=== PATIENT | female | born 1990 ===

== ENCOUNTER → 2020-04-27 | Outpatient (CLI) | payer OTHER ==
[2020-05-08 12:10] LABS: CHLAMYDIA TRACHOMATIS, NAA Negative (Negative); NEISSERIA GONORRHOEAE, NAA Negative (Negative)
== END | disposition home or self-care (01) ==
LOC: LAB SHORT 15:30 → LAB 15:30
PROVIDERS: Advanced Practice Midwife
DX: Z01.419 Encounter for gynecological examination (general) (routine) without abnormal findings (principal); Z11.3 Encounter for screening for infections with a predominantly sexual mode of transmission
CPT/HCPCS: 87491; 87591; 87625; G0123

== ENCOUNTER → 2020-06-05 | Outpatient (CLI) | payer OTHER | END | disposition home or self-care (01) | LOC: PLD 14:26 → LAB SHORT 14:26 | DX: R87.612 Low grade squamous intraepithelial lesion on cytologic smear of cervix (LGSIL) (principal); D06.0 Carcinoma in situ of endocervix; D06.1 Carcinoma in situ of exocervix | CPT/HCPCS: 88305 ==

== ENCOUNTER 2021-01-08 20:29 | Emergency (ER) | payer OTHER ==
[~2021-01-08] VITALS: Ht 160 cm; Wt 68.0 kg
[2021-01-08] MEDS ORDERED: PRENATAL DHA200 MG PO (21:09)
[2021-01-08] MEDS ORDERED: Permethrin60 GM TOP (21:13)
== END 2021-01-08 21:20 | disposition home or self-care (01) ==
LOC: ER 20:29
DX: O98.813 Other maternal infectious and parasitic diseases complicating pregnancy, third trimester (principal); B86 Scabies; Z88.1 Allergy status to other antibiotic agents; Z3A.31 31 weeks gestation of pregnancy
CPT/HCPCS: 99282

== ENCOUNTER 2021-02-23 09:19 | Inpatient (IN) | payer OTHER ==
[~2021-02-23] VITALS: Ht 160 cm; Wt 70.7 kg
[~2021-02-23 09:19] MED LIST: PRENATAL DHA200 MG PO; Permethrin60 GM TOP
[2021-02-23] MEDS ORDERED: PRENATAL TABLE1 EAC2 PO (09:53)
[2021-02-23 09:56] LABS: BASOPHILS ABSOLUTE AUTO 0.02 K/mm3 (0.00-0.23); BASOPHILS PERCENT AUTO 0 % (0-2); EOSINOPHILS ABSOLUTE AUTO 0.09 K/mm3 (0.00-0.68); EOSINOPHILS PERCENT AUTO 1 % (0-6); Hematocrit 38.2 % (33.0-51.0); Hemoglobin 13.6 g/dL (11.5-16.0); IMMATURE GRAN ABSOLUTE AUTO 0.06 K/mm3 (0.00-0.10); IMMATURE GRAN PERCENT AUTO 1 % (0-1); LYMPHOCYTES ABSOLUTE AUTO 0.84 K/mm3 (0.84-5.20); LYMPHOCYTES PERCENT AUTO 11 % (21-46); MONOCYTES ABSOLUTE AUTO 0.52 K/mm3 (0.16-1.47); MONOCYTES PERCENT AUTO 7 % (4-13); Mean Corpuscular HGB 32.2 pg (26.0-34.0); Mean Corpuscular HGB Conc 35.6 g/dL (31.5-36.5); Mean Corpuscular Volume 90 fL (80-100); Mean Platelet Volume 11.5 fL (9.1-12.4); NEUTROPHILS ABSOLUTE AUTO 6.39 K/mm3 (1.96-9.15); NEUTROPHILS PERCENT AUTO 81 % (41-73); Platelet Count 147 K/mm3 (150-400); RDW Standard Deviation 42.9 fL (35.1-46.3); Red Blood Cell Count 4.23 M/mm3 (3.80-5.20); White Blood Cell Count 7.92 K/mm3 (4.00-11.30)
[2021-02-23 10:43] LABS: SARS-Cov-2 (COVID-19) PCR, MMC NEGATIVE (NEGATIVE)
[2021-02-23] MEDS ORDERED: IBUP800 PO (17:16)
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
--- NOTE | 2021-02-24 16:13 | NUR ---
d/c to border patient
== END 2021-02-24 16:55 | disposition home or self-care (01) | DRG 807 ==
LOC: OBS 09:19 → BC 09:22 → OBS 09:40 → BC 09:41
PROVIDERS: ADMIT Family Medicine
PROC: 10E0XZZ Delivery of Products of Conception, External Approach (ICD-10-PCS; principal; 2021-02-23)
DX: O99.824 Streptococcus B carrier state complicating childbirth (principal); Z37.0 Single live birth; Z3A.38 38 weeks gestation of pregnancy; O34.211 Maternal care for low transverse scar from previous cesarean delivery; Z20.822 Contact with and (suspected) exposure to COVID-19; D06.9 Carcinoma in situ of cervix, unspecified; D27.9 Benign neoplasm of unspecified ovary; O71.82 Other specified trauma to perineum and vulva; O99.892 Other specified diseases and conditions complicating childbirth; Z79.899 Other long term (current) drug therapy; Z88.8 Allergy status to other drugs, medicaments and biological substances
CPT/HCPCS: 36415; 59025; 85025; 86850; 86900; 86901; A9270; J0290; J1885; J2210; J2590; J7120; U0004

== ENCOUNTER → 2021-04-19 | Outpatient (CLI) | payer OTHER ==
[~2021-04-19] MED LIST changes: +IBUP800 PO; +PRENATAL TABLE1 EAC2 PO
== END | disposition home or self-care (01) ==
LOC: LAB SHORT 15:27 → LAB 15:27
DX: D06.1 Carcinoma in situ of exocervix (principal)
CPT/HCPCS: 88305

== ENCOUNTER 2021-06-24 12:30 | Day surgery (SDC) | payer OTHER ==
[~2021-06-24] VITALS: Ht 160 cm; Wt 58.8 kg
--- NOTE | 2021-06-24 15:15 | NUR ---
06/24/21 1515 Zulema Arana BUPIVACAINE 0.5% 150 MGS MIXED WITH EPI 0.15 MG PER ORDER TO CONSTITUTE BUPIVACAINE 0.5% 1:200,000 FOR INJECTION AT OPSITE BY DR MITTAL.
--- NOTE | 2021-06-24 16:46 | NUR ---
06/24/21 8531 Minda López PT IS TEXTING AND PLAYING ON HER PHONE, NO COMPLAITS OF PAIN OR NAUSEA, SHOWING ME PICTURES OF HER BABY. UNABLE TO GET BP READINGS UNLESS I HELD HER ARM STILL AFTER TELLING HER SEVERAL TIMES THAT WHEN THE BLOOD PRESSURE IS TRYING TO READ YOU MUST STAY STILL.
== END 2021-06-24 17:05 | disposition home or self-care (01) ==
LOC: ORSCSDS 12:30
PROVIDERS: Obstetrics & Gynecology
PROC: 0UB14ZZ Excision of Left Ovary, Percutaneous Endoscopic Approach (ICD-10-PCS; principal; 2021-06-24 14:00)
PROC: 0UT04ZZ Resection of Right Ovary, Percutaneous Endoscopic Approach (ICD-10-PCS; principal; 2021-06-24 14:00)
PROC: 0UT74ZZ Resection of Bilateral Fallopian Tubes, Percutaneous Endoscopic Approach (ICD-10-PCS; principal; 2021-06-24 14:00)
DX: D27.0 Benign neoplasm of right ovary (principal); D28.2 Benign neoplasm of uterine tubes and ligaments; N83.202 Unspecified ovarian cyst, left side; Z30.2 Encounter for sterilization; K21.9 Gastro-esophageal reflux disease without esophagitis; F32.A Depression, unspecified
CPT/HCPCS: J0171; J1100; J1885; J2250; J2405; J2704; J3010; J7120

== ENCOUNTER → 2022-07-14 | Outpatient (CLI) | payer OTHER | LOC: LAB 18:35 → LAB SHORT 18:35 | DX: R35.0 Frequency of micturition (principal) | CPT/HCPCS: 87086 ==

== ENCOUNTER → 2022-09-21 | Outpatient (CLI) | payer OTHER ==
[2022-09-22 15:11] LABS: HPV 16 Negative (Negative); HPV 18 Negative (Negative); HPV OTHER HR TYPES Negative (Negative)
== END ==
LOC: LAB SHORT 13:35 → LAB 13:35
PROVIDERS: Obstetrics & Gynecology
DX: R87.612 Low grade squamous intraepithelial lesion on cytologic smear of cervix (LGSIL) (principal)
CPT/HCPCS: 87624; G0145